=== PATIENT | female | born 1950 | race Caucasian/White ===

== ENCOUNTER → 2018-05-27 16:19 | Outpatient (CLI) | payer OTHER, SELFPAY ==
--- NOTE | 2018-05-27 | DI.MRI.S_ITS ---
PROCEDURE: MR THORACIC SPINE WO/W CON INDICATIONS: PARESTHESIAS TECHNIQUE: Noncontrast sagittal T1 spin echo and T2 fast spin echo, sagittal STIR, axial T1 and T2 fast spin echo through the thoracic spine. After the administration of contrast, axial and sagittal T1 spin echo with fat saturation through the thoracic spine. COMPARISON: [facility], MR, MR LUMBAR SPINE WO/W CON, 05/27/2018, 18:07. [facility], MR, MR CERVICAL SPINE WO/W CON, 05/27/2018, 17:12. [facility], MR, MR HEAD/BRAIN WO/W CON, 05/27/2018, 16:52. FINDINGS: Image quality: This examination is limited by involuntary motion artifact. Alignment and curvature: Accentuated thoracic kyphosis is seen. No focal AP alignment abnormality is seen. Marrow: Marrow is of normal overall signal. No acute vertebral body compression fractures. Incidental note is made of a remote appearing Schmorl's nodes at the superior endplates of T8 and T9. Spinal cord: Visualized spinal cord is of normal signal and size, without abnormal enhancement. Paraspinous soft tissues: No paravertebral masses or abnormal enhancement. A nonenhancing left renal cyst is seen posteriorly measuring 2 point it centimeters. The Miscellaneous: Central canal and foramina appear widely patent at all scanned levels. IMPRESSION: Limited study demonstrating no significant thoracic spine abnormality. No abnormal enhancement. Dictated by: Waldemar Rizvi M.D. on 05/28/2018 at 9:09 Approved by: Waldemar Rizvi M.D. on 05/28/2018 at 9:11
--- NOTE | 2018-05-27 | DI.MRI.S_ITS ---
PROCEDURE: MR LUMBAR SPINE WO/W CON INDICATIONS: PARESTHESIAS TECHNIQUE: Noncontrast sagittal T1 spin echo and T2 fast spin echo, sagittal STIR, axial T1 and T2 fast spin echo through the lumbar spine. In this patient, coronal T2-weighted images were also performed. After the administration of contrast, sagittal and axial T1 spin echo with fat saturation through the lumbar spine. COMPARISON: None. FINDINGS: Image quality: Excellent. Alignment and curvature: Minimal retrolisthesis is seen at the L2-L3 and L3-L4 levels. Marrow: Marrow is of normal overall signal. No acute vertebral body compression fractures. No suspicious marrow enhancement. Spinal cord: Conus medullaris terminates at the L1 level. Visualized spinal cord demonstrates normal signal, without suspicious enhancement. Paraspinous soft tissues: No paravertebral masses or abnormal enhancement. A nonenhancing 2.5 cm cyst is seen at the posterior aspect of the left kidney. T12-L1: Normal appearance. L1-L2: Normal appearance. L2-L3: Mild loss of disc height is seen. Loss of disc signal is seen. Moderate disc bulge is seen, which is eccentric to the left. There is moderate left-sided and mild right-sided neural foraminal narrowing seen. Minimal central canal narrowing is seen. L3-L4: The disc height is well-preserved. Loss of disc signal is seen at this level. Moderate disc bulge is seen, which is eccentric to the left side. Mild facet joint hypertrophy is seen. [id number] bilateral neural foraminal narrowing is seen. Minimal central canal narrowing is seen at the level. L4-L5: The disc height is well-preserved. Loss of disc signal is seen at this level. Moderate generalized disc bulge is seen. Moderate facet joint hypertrophy is seen. [id number] bilateral neural foraminal narrowing is seen. Mild central canal narrowing is seen. L5-S1: The disc height is well-preserved. Loss of disc signal is seen at this level. Mild generalized disc bulge is seen. Moderate facet joint hypertrophy is seen. There is mild right-sided and no left-sided neural foraminal narrowing. No central canal narrowing. IMPRESSION: Multiple levels of lumbar spine degenerative change are seen, which are most prominent at the L2-L3 level. No abnormal enhancement can be seen. Dictated by: Waldemar Rizvi M.D. on 05/28/2018 at 9:11 Approved by: Waldemar Rizvi M.D. on 05/28/2018 at 9:18
--- NOTE | 2018-05-27 | DI.MRI.S_ITS ---
PROCEDURE: MR CERVICAL SPINE WO/W CON INDICATIONS: PARESTHESIAS TECHNIQUE: Noncontrast sagittal T1 spin echo and T2 fast spin echo, sagittal STIR, foraminal oblique sagittal T2 fast spin echo, axial gradient echo or T2 fast spin echo through the cervical spine. After the administration of contrast, axial and sagittal T1 spin echo with fat saturation through the cervical spine. COMPARISON: [facility], MR, MR LUMBAR SPINE WO/W CON, 05/27/2018, 18:07. [facility], MR, MR THORACIC SPINE WO/W CON, 05/27/2018, 17:45. [facility], MR, MR HEAD/BRAIN WO/W CON, 05/27/2018, 16:52. FINDINGS: Image quality: This examination is limited by involuntary motion artifact. Furthermore, the standard cervical spine coil could not be used, secondary to patient discomfort. Alignment and curvature: There is normal bony alignment. Marrow: Marrow is normal in overall signal, without suspicious enhancement. Spinal cord: Visualized spinal cord has normal size and signal. No cerebellar tonsillar herniation. No abnormal intramedullary enhancement. Paraspinous soft tissues: No paravertebral masses or suspicious enhancement. C2-3: The disc height is well-preserved. Loss of disc signal is seen at this level. A mild degree of generalized disc osteophyte complex is seen. There is mild right-sided and no left-sided neural foraminal narrowing seen. The central canal is widely patent. C3-4: The disc height is well-preserved. Loss of disc signal is seen at this level. A mild degree of generalized disc osteophyte complex is seen. Mild facet joint hypertrophy is seen. Moderate bilateral neural foraminal narrowing is seen. Mild central canal narrowing is seen. C4-5: Mild loss of disc height is seen. Loss of disc signal is seen. Moderate disc osteophyte complex is seen, with a disc osteophyte protrusion involving the right lateral recess, as on series 4 image 15. There is moderate right-sided and mild left-sided facet hypertrophy seen. There is at least moderate bilateral neural foraminal narrowing seen. Mild to moderate central canal narrowing is seen. C5-6: Mild to moderate loss of disc height and disc signal are seen. Moderate generalized disc osteophyte complex is seen. Uncovertebral joint hypertrophy is seen at this level. Moderate to severe bilateral neural foraminal narrowing is seen at this level. Moderate central canal narrowing is seen. C6-7: Moderate loss of disc height is seen. Loss of disc signal is seen. Moderate generalized disc osteophyte complex is seen. Mild facet joint hypertrophy is seen. There is moderate to severe right-sided and moderate left-sided neural foraminal narrowing seen. Moderate central canal narrowing is seen. C7-T1: No significant abnormality is seen. IMPRESSION: Limited study demonstrate multiple levels of cervical spine degenerative change are seen, which are overall most prominent at the C5-C6 level. No abnormal enhancement can be seen. Dictated by: Waldemar Rizvi M.D. on 05/28/2018 at 8:59 Approved by: Waldemar Rizvi M.D. on 05/28/2018 at 9:08
--- NOTE | 2018-05-27 | DI.MRI.S_ITS ---
PROCEDURE: MR HEAD/BRAIN WO/W CON INDICATIONS: PARESTHESIAS TECHNIQUE: Noncontrast axial T1 spin echo, axial T2 fast spin echo, sagittal and axial FLAIR, coronal T2 fast spin echo, axial gradient echo, axial diffusion and ADC through the brain. After the administration of contrast, axial and coronal T1 spin echo with fat saturation through the brain. COMPARISON: None. FINDINGS: Image quality: Excellent. CSF spaces: Basal cisterns are patent. No extra-axial fluid collections. Ventricles are normal in size and shape. Brain: No midline shift. Scattered bilateral periventricular and subcortical white matter signal changes presumably chronic small vessel ischemic disease although technically nonspecific. No intracranial bleeds or masses. No abnormal intracranial enhancement. There is cerebral volume loss for age. There is periventricular white matter chronic small vessel ischemic change. The brainstem appears normal. Diffusion-weighted images demonstrate no acute ischemic insults. No chronic ischemic insults. Normal intravascular flow voids are present. Skull and face: Calvarial marrow is normal in signal. Orbits appear normal. Sinuses: Sinuses and mastoids appear clear. IMPRESSION: Scattered nonspecific white matter signal changes which could be chronic microvascular ischemic disease although cannot entirely exclude demyelination recommend clinical correlation.No associated or abnormal enhancement. Dictated by: Sherif Rebolledo M.D. on 05/28/2018 at 9:06 Approved by: Sherif Rebolledo M.D. on 05/28/2018 at 9:17
== END ==
PROVIDERS: PCP Family Medicine; Visit Provider Psychiatry & Neurology Neurology
DX: R20.2 Paresthesia of skin (principal); M50.30 Other cervical disc degeneration, unspecified cervical region; M51.36 Other intervertebral disc degeneration, lumbar region
CPT/HCPCS: 70553; 72156; 72157; 72158; A9579

== ENCOUNTER 2018-10-09 12:58 | Day surgery (SDC) | payer OTHER, SELFPAY ==
[2018-10-06 08:22] VITALS: BMI 35.9
[2018-10-09] VITALS (11 sets, daily range): BP systolic 136–177; BP diastolic 56–88; PULSE 66–81; RESP 11–16; TEMP 36.6–36.8; O2SAT 91–97; BMI 35.9
--- NOTE | 2018-10-09 | DI.RAD.S_ITS ---
PROCEDURE: XR KNEE LT 1TO2V INDICATIONS: RIGHT KNEE HARDWARE REMOVAL TECHNIQUE: 1 view(s) of the knee acquired. COMPARISON: [facility], CR, XR BONE LENGTH SCANOGRAM, 05/29/2018, 8:35. [facility], RG, KNEE 3VW (LT), 05/16/2017, 14:43. [facility], MR, MR KNEE LEFT WITHOUT CONTRAST, 05/06/2018, 16:40. FINDINGS: Surgical patent screws in the proximal tibia have been removed. IMPRESSION: Removal of surgical hardware. Dictated by: Todd Moreno M.D. on 10/09/2018 at 17:55 Approved by: Todd Moreno M.D. on 10/09/2018 at 17:56
[2018-10-09] MEDS: CEFAZOLIN 2 GM/100 ML FROZ.PIGGY IV (15:08)
--- NOTE | 2018-10-09 15:54 | SUR.OPER ---
Supine on padded OR bed, head on pillow, arms secured on padded arm boards at <90 degrees abduction, legs uncrossed, safety belt at thigh, tape over blanket over lower legs.
[2018-10-09] MEDS: BUPIVACAINE 0.25% W/ EPI VIAL 50 ML INJ (16:12)
[2018-10-09] MEDS: BUPIVACAINE LIPOSOME 266 MG/20 ML VIAL INJ (16:13)
[2018-10-09] MEDS: ACETAMINOPHEN IV 1,000 MG/100 ML VIAL 400 MG IV (16:21)
--- NOTE | 2018-10-09 16:46 | SUR.OPER ---
UNABLE TO DOCUMENT EXACT ITEMS EXPLANTED THEY ARE FROM A SPECIFIC IMPLANT TRAY FROM ANOTHER FACILITY AND NO ACCESS TO NUMBERS WAS AVAILABLE.
[2018-10-09] MEDS: LACTATED RINGERS 1,000 ML 42 ML IV (16:58)
--- NOTE | 2018-10-09 17:16 | P.OP_ITS ---
Operative Date/Time/Diagnoses Date of procedure: 10/09/18 Time of procedure: 17:12 Pre-op diagnosis: left tibia malunion, nonunion Post-op diagnosis: same Procedure & Clinicians Procedure: removal deep internal fixation tibia Same procedure as scheduled: Yes Indications: 67 year old with history of a tibial plateau fracture with substantial valgus deformity and a tibial plateau malunion after open reduction internal fixation which was done [place]. She has fairly severe left knee pain and is unable to fully weightbear. Her x-rays showed significant collapse of the lateral compartment she is brought the operating room for removal of internal fixation with the anticipation that ultimately she will likely require a complex primary total knee arthroplasty. Surgeon: Melva Nieves Hydraulic Blocker: Ana Maria Rosenberg Anesthesia Type: General and Spinal Operative Notes Findings: Hardware removed without difficulty. Proximal tibial plateau markedly softened with some of the screws in an intra-articular location with loss of bone and articular cartilage covering the screws. Softening of the lateral tibial plateau. All hardware removed without significant difficulty. Closure Type: primary Specimen(s): none sent Estimated Blood Loss (mL): 100 Blood products transfused: none Tourniquet time (min): 75 Procedure in detail: Patient was brought to the operating room. She underwent the induction of a spinal and general anesthesia. Her left lower extremities prepped draped standard sterile fashion. Antibiotics were given and time-out was performed. Patient's previous surgical incision laterally was used portion of it. Dissection was carried out through skin and subcutaneous tissues. Tourniquet was inflated to 250 mm of mercury. Gelpi retractors were placed. Patient's lateral fascia and anterior compartment incision was made just off of the lateral aspect of the tibial tubercle. The muscles of the tibialis anterior were carefully stripped from the tibia down to the plate. Plate and screws were removed without difficulty. The iliotibial band was retracted laterally. The C- arm was brought in and the K-wires were removed using C-arm guidance. Several of the K-wires were in the subchondral bone to intra-articular. The 2 screws that were placed outside of the plate were carefully removed. There was marked softening of the proximal tibia. A view of the intra-articular surface and tibial plateau showed that 1 of the screws had eroded through the subchondral bone articular cartilage and was impinging upon the femoral condyle. There was moderate arthritic change in the lateral femoral condyle and severe destruction of the articular cartilage surface of the tibial plateau laterally as well as the subchondral bone. All hardware was removed and the x-ray was used to confirmed this fluoroscopically. The knee was meticulously irrigated with normal saline. Marcaine and Exparel were injected into the anterior compartment as well as intra-articularly and along the skin incision. The wound was closed with interrupted Vicryl. Subcutaneous tissues was closed with barbed stitches as was the skin. [place] were placed. An Aquacel dressing was placed. Patient tolerated the procedure well transferred recovery room in satisfactory condition. Complications: none Condition: stable Disposition: same day surgery Plan for aftercare: Weightbearing as tolerated left lower extremity. Suture removal and wound check in about 2 weeks postoperatively. Get check x-rays. Return to see me at 3-4 weeks postoperatively for a wound check and additional surgical planning.
[2018-10-09] MEDS: fentaNYL 100 MCG/2 ML INJ 25 MCG IV ×2 (17:33→17:38)
[2018-10-09] MEDS: OXYCODONE IR 5 MG TABLET PO (17:47)
== END 2018-10-09 18:27 | disposition home or self-care (01) ==
PROVIDERS: PCP Family Medicine; Visit Provider Orthopaedic Surgery
PROC: (CPT 20680; principal; 2018-10-09 15:00)
DX: S82.142A Displaced bicondylar fracture of left tibia, initial encounter for closed fracture (principal); M19.172 Post-traumatic osteoarthritis, left ankle and foot; V29.9XXS Motorcycle rider (driver) (passenger) injured in unspecified traffic accident, sequela; I10 Essential (primary) hypertension; F33.41 Major depressive disorder, recurrent, in partial remission; J45.909 Unspecified asthma, uncomplicated; Z87.891 Personal history of nicotine dependence; G43.909 Migraine, unspecified, not intractable, without status migrainosus; Z68.35 Body mass index [BMI] 35.0-35.9, adult; E66.9 Obesity, unspecified
CPT/HCPCS: 20680; 73560; 76000; C9290; J0131; J0690; J2250; J2405; J2704; J3010

== ENCOUNTER → 2018-12-07 12:26 | Outpatient (CLI) | payer OTHER, SELFPAY ==
--- NOTE | 2018-12-07 | DI.MRI.S_ITS ---
PROCEDURE: MR KNEE LT WO CON INDICATIONS: Torus fracture of upper end of left fibula TECHNIQUE: Noncontrast sagittal PD fast spin echo and T2 fast spin echo with fat saturation, sagittal 3-D FLASH with fat saturation; coronal T1 spin echo and PD fast spin echo with fat saturation, and axial PD fast spin echo with fat saturation through the knee. COMPARISON: [facility], CR, XR KNEE ARTHRITIC SERIES LT, 06/03/2018, 16:06. [facility], CR, XR KNEE 1 OR 2 VIEWS LEFT, 10/22/2018, 16:31. FINDINGS: Image quality: Susceptibility artifacts are noted over lateral aspect of left knee from previous surgical fixation. Study is also suboptimal secondary to patient's body habitus. Menisci: The there is suggestion of complex tear involving posterior horn medial meniscus extending to both superior and inferior articulating surfaces. There is nonvisualization of normal lateral meniscus, which may represent prior lateral meniscectomy, suggest clinical correlation. Cruciate ligaments: Anterior cruciate ligament appears thickened with heterogeneous internal T2 signal suggestive of sprain and intrasubstance partial-thickness tear involving anterior cruciate ligament. PCL is intact. Medial structures: The medial collateral ligament appears intact. The posterior oblique ligament, semimembranosus tendon insertions, oblique popliteal ligament, and meniscocapsular junction appear intact. Visualized portions of the pes anserinus tendons appear normal. No abnormal bursal fluid. Lateral structures: The lateral collateral ligament is not well seen suggestive of a torn lateral collateral ligament. Soft tissue swelling and edema superficial and deep to the region of lateral collateral ligament is noted. The long and short heads of the biceps femoris tendon appear intact. The popliteus tendon appears normal; the popliteofibular ligament appears intact. The posterosuperior and anteroinferior popliteomeniscal fascicles appear intact. The arcuate and fabellofibular ligaments appear intact, on either side of the lateral inferior geniculate artery. Iliotibial band appears normal. Anterior structures: The quadriceps and patellar tendons appear intact. Patellar alignment is normal. No femoral trochlear dysplasia or ventral trochlear prominence. No edema in the infrapatellar fat pad. Bones and cartilage: Prior fixation of lateral tibial plateau and proximal tibia shaft is seen with post surgical changes and blooming susceptibility artifacts. No gross acute fracture or dislocation is seen. Moderate tricompartmental osteoarthritis is noted more prominent in lateral femoral tibial compartment. Joint space: There is moderate amount of joint fluid, no gross loose body. No Redman's cyst. Normal appearing synovial plicae are incidentally noted. IMPRESSION: #1. Prior ORIF of proximal tibia with postsurgical changes and susceptibility artifact slightly degrades the study. No gross acute fracture or dislocation. No significant marrow signal abnormality. 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 #2. Nonvisualization of normal lateral meniscus suggestive of partial meniscectomy versus chronic complex tear. Complex tear involving posterior horn of medial meniscus extending to superior and inferior articulating surfaces. #3. Sprain/moderately intrasubstance partial-thickness tear involving anterior cruciate ligament. No full-thickness ACL rupture. PCL is intact. #4. Nonvisualization of normal lateral collateral ligament, suggestive of LCL rupture. Dictated by: Guillermo Rodgers M.D. on 12/07/2018 at 14:05 Approved by: Guillermo Rodgers M.D. on 12/07/2018 at 14:14
== END ==
PROVIDERS: PCP Family Medicine; Visit Provider Orthopaedic Surgery
DX: S82.81 Torus fracture of upper end of fibula (principal); S83.512A Sprain of anterior cruciate ligament of left knee, initial encounter; S83.232A Complex tear of medial meniscus, current injury, left knee, initial encounter; M17.12 Unilateral primary osteoarthritis, left knee
CPT/HCPCS: 73721

== ENCOUNTER 2018-12-18 13:00 | Emergency (ER) | payer OTHER, SELFPAY ==
[2018-12-18 13:10] VITALS: BP 125/80; PULSE 67; RESP 18; O2SAT 96
[2018-12-18 15:45] VITALS: BP 143/78; PULSE 81; RESP 15; TEMP 36.4; O2SAT 100
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
[2018-12-18] MEDS: ONDANSETRON 4 MG/2 ML INJ IV (18:59)
[2018-12-18] MEDS: PANTOPRAZOLE 40 MG VIAL IV (18:59)
[2018-12-18] MEDS: SODIUM CHLORIDE 0.9% 1,000 ML 1000 ML IV (18:59)
[2018-12-18 19:00] LABS: Add Manual Diff / Slide Review NO; Basophils Absolute Auto 0 /uL (0-100); Basophils Percent Auto 0.7 % (0-2); Eosinophils Absolute Auto 400 /uL (0-450); Eosinophils Percent Auto 5.4 % (2-4); Hematocrit 42.3 % (36-46); Hemoglobin 13.7 g/dL (12.0-16.0); Lymphocytes Absolute Auto 2200 /uL (1100-4500); Lymphocytes Percent Auto 30.5 % (25-40); Mean Corpuscular HGB Conc 32.5 % (30-36); Mean Corpuscular Hemoglobin 29.4 PG (26-34); Mean Corpuscular Volume 90.5 fL (80-100); Monocytes Absolute Auto 700 /uL (0-900); Monocytes Percent Auto 9.9 % (3-14); Neutrophils Absolute Auto 3800 /uL (1500-7000); Neutrophils Percent Auto 53.5 % (50-75); Platelet Count 178 X10^3/uL (150-400); Red Blood Cell Count 4.68 X10^6/uL (4.0-5.2); Red Cell Distribution Width 13.9 % (11.6-14.8); White Blood Cell Count 7.1 X10^3/uL (4.5-11.0)
[2018-12-18 19:12] LABS: Alanine Aminotransferase 20 IU/L (9-52); Albumin 4.3 g/dL (3.5-5.0); Albumin Globulin Ratio 1.3 (1.0-2.8); Alkaline Phosphatase 75 U/L (38-126); Aspartate Aminotransferase 22 IU/L (14-36); BUN Creatinine Ratio 12.2 (6-22); Bilirubin Total 0.3 mg/dL (0.2-1.3); Blood Urea Nitrogen 11 mg/dL (7-17); Calcium 9.5 mg/dL (8.4-10.2); Carbon Dioxide 30 mmol/L (22-32); Chloride 98 mmol/L (98-107); Estimated Glomerular Filt Rate > 60.0 mL/min (>60); Globulin 3.3 g/dL (1.7-4.1); Glucose 90 mg/dL (80-110); HEMOLYSIS < 15 (0-50); Lipase 75 U/L (23-300); Potassium 4.4 mmol/L (3.4-5.1); Sodium 136 mmol/L (137-145); Total Protein 7.6 g/dL (6.3-8.2)
[2018-12-18 19:30] VITALS: BP 125/49; PULSE 68; RESP 24; O2SAT 94
[2018-12-18 20:30] VITALS: BP 124/65; PULSE 61; RESP 15; O2SAT 98
[2018-12-18 21:14] LABS: Bacteria Urine None Seen; RBC Urine None Seen (0-5/HPF)
[2018-12-18 21:41] LABS: Culture Indicated Urine Specimen Cultured; Squamous Epithelial Cell Urine 0-1 /HPF; WBC Urine 1-5/HPF (0-5/HPF)
== END 2018-12-18 22:45 | disposition home or self-care (01) ==
PROVIDERS: Emergency Medicine; Emergency Provider Nurse Practitioner Family; PCP Family Medicine
DX: R19.7 Diarrhea, unspecified (principal)
CPT/HCPCS: 36591; 80053; 81003; 81015; 83690; 85025; 87086; 96361; 96374; 96375; 99283; 99284; C9113; J2405

== ENCOUNTER → 2019-06-23 15:41 | Outpatient (CLI) | payer OTHER, SELFPAY ==
--- NOTE | 2019-06-23 | DI.MRI.S_ITS ---
PROCEDURE: MR KNEE LT WO CON INDICATIONS: Unilateral post-traumatic osteoarthritis. Left knee pain TECHNIQUE: Noncontrast sagittal PD fast spin echo and T2 fast spin echo with fat saturation, sagittal 3-D FLASH with fat saturation; coronal T1 spin echo and PD fast spin echo with fat saturation, and axial PD fast spin echo with fat saturation through the knee. COMPARISON: [facility], CR, XR KNEE 1 OR 2 VIEWS LEFT, 10/22/2018, 16:31. [facility], CR, XR KNEE ARTHRITIC SERIES LT, 06/09/2019, 9:09. [facility], MR, MR KNEE LT WO CON, 12/07/2018, 12:58. FINDINGS: Image quality: Diagnostic. Susceptibility artifacts are noted in lateral portion of proximal tibial shaft from prior surgery. Menisci: Truncated appearance of the medial meniscus is seen on the current study suggestive of partial meniscectomy. Signal abnormality involving posterior horn of medial meniscal remnant, which may represent postsurgical changes. Local recurrent tear cannot be entirely excluded. Nonvisualization of lateral meniscus, unchanged from prior study and may represent prior lateral meniscectomy. Cruciate ligaments: Heterogeneous signal within thickened anterior cruciate ligament is again seen suggestive of sprain/intrasubstance partial thickness tear. No full-thickness ACL rupture. PCL is intact. Medial structures: The medial collateral ligament appears intact. The posterior oblique ligament, semimembranosus tendon insertions, oblique popliteal ligament, and meniscocapsular junction appear intact. Visualized portions of the pes anserinus tendons appear normal. No abnormal bursal fluid. Lateral structures: The lateral collateral ligament is not visualized, suggestive of torn lateral collateral ligament. Soft tissue swelling and edema superficial and deep to region of lateral collateral ligament is again seen and unchanged. The long and short heads of the biceps femoris tendon appear intact. The popliteus tendon appears normal; the popliteofibular ligament appears intact. The posterosuperior and anteroinferior popliteomeniscal fascicles appear intact. The arcuate and fabellofibular ligaments appear intact, on either side of the lateral inferior geniculate artery. Iliotibial band appears normal. Anterior structures: The quadriceps and patellar tendons appear intact. Patellar alignment is normal. No femoral trochlear dysplasia or ventral trochlear prominence. No edema in the infrapatellar fat pad. Bones and cartilage: Again noted are postsurgical changes involving medial aspect of proximal tibia consistent with healing proximal tibial fracture. No gross acute fracture or dislocation. Moderate tricompartmental osteoarthritis is again seen more prominent in lateral femoral tibial compartment. Joint space: There is physiologic knee joint fluid. No Redman's cyst. Normal appearing synovial plicae are incidentally noted. IMPRESSION: 1. Suggestion of interval partial meniscectomy and medial meniscus as above. Signal abnormality involving posterior horn medial meniscal remanent, which may represent postsurgical changes. Recurrent tear cannot be entirely excluded. Suggestion of prior lateral meniscectomy. 2. Sprain/intrasubstance partial-thickness tear involving anterior cruciate ligament changed from prior study. 3. Absence of normal lateral collateral ligament unchanged from prior study. MCL is intact. 4. Moderate tricompartmental osteoarthritis more prominent in medial femoral tibial compartment. Prior ORIF of medial aspect of proximal tibia with stable postsurgical changes. No acute fracture or dislocation. Dictated by: Guillermo Rodgers M.D. on 06/23/2019 at 17:05 Approved by: Guillermo Rodgers M.D. on 06/23/2019 at 17:13
== END ==
PROVIDERS: PCP Family Medicine; Visit Provider Orthopaedic Surgery
DX: M17.32 Unilateral post-traumatic osteoarthritis, left knee (principal); M25.562 Pain in left knee; S83.512A Sprain of anterior cruciate ligament of left knee, initial encounter
CPT/HCPCS: 73721

== ENCOUNTER 2019-08-10 11:11 | Day surgery (SDC) | payer OTHER, SELFPAY ==
[2019-08-03 12:35] VITALS: BMI 38.4
[2019-08-10] VITALS (11 sets, daily range): BP systolic 107–146; BP diastolic 49–84; PULSE 53–94; RESP 12–18; TEMP 35.8–36.7; O2SAT 94–99; BMI 37.5
--- NOTE | 2019-08-10 06:00 | DI.RAD.S_ITS ---
PROCEDURE: XR KNEE LT 1TO2V INDICATIONS: total left knee TECHNIQUE: 2 view(s) of the knee acquired. COMPARISON: [facility], CR, XR KNEE LT 1TO2V, 10/09/2018, 16:06. [facility], MR, MR KNEE LT WO CON, 06/23/2019, 16:01. FINDINGS: Bones: Patient is status post knee joint arthroplasty. Hardware components are in expected positions. Visualized bony structures are intact. Soft tissues: Overlying postoperative changes are noted. IMPRESSION: Expected postsurgical changes as above. Dictated by: Myla Valero M.D. on 08/11/2019 at 12:45 Approved by: Myla Valero M.D. on 08/11/2019 at 12:46
[2019-08-10] MEDS: VANCOMYCIN 1,000 MG/200 ML PIGGYBACK 200 MG IV (12:40)
[2019-08-10] MEDS: LACTATED RINGERS 1,000 ML 42 ML IV ×2 (12:40→14:52)
--- NOTE | 2019-08-10 13:52 | SUR.PREOP ---
Verified pt has tolerated Ancef at previous visit and is ok to give per Dr. Nieves.
[2019-08-10] MEDS: CEFAZOLIN 2 GM/100 ML FROZ.PIGGY IV (13:54)
[2019-08-10] MEDS: TRANEXAMIC ACID 1,000 MG VIAL 1000 MG INJ (14:32)
[2019-08-10] MEDS: BUPIVACAINE 0.25% W/ EPI 30 ML VIAL 60 ML INJ (14:54)
[2019-08-10] MEDS: BUPIVACAINE LIPOSOME 266 MG/20 ML VIAL INJ (14:55)
[2019-08-10] MEDS: SODIUM CHLORIDE IRRIG SOLUTION 250 ML, POVIDONE-IODINE SPONGE STICKS 1 APPLIC IRR (14:57)
--- NOTE | 2019-08-10 15:01 | SUR.OPER ---
Supine on padded OR bed. Gel donut under head, arms secured on padded armboards <90 degree abduction. Safety belt across torso. Non-operative leg secured with tape over blanket over lower leg. Operative leg secured in DeMayo positioner. Foam padded brace at thigh of operative leg.
--- NOTE | 2019-08-10 17:37 | PM.OP.1 ---
Operative Date/Time/Diagnoses Date of procedure: 08/10/19 Time of procedure: 13:55 Pre-op diagnosis: post traumatic OA severe left tibia Post-op diagnosis: same Operative Notes Findings: Severe lateral tibial arthritic wear and scar with marked valgus deformity, no infectious appearing material Closure Type: primary Specimen(s): other (cultures from tibia) Prosthetic devices, grafts, tissues, transplants, or devices: Nieves and Nephew legion size 4 femur, cruciate sacrificing, size 2 tibia, 12 x 100 mm tibial stem, +10 poly, 35 by 7-1/2 mm patella Applied: drain(s) Estimated Blood Loss (mL): 250 Blood products transfused: none Tourniquet time (min): 123 Procedure in detail: The patient was seen in the pre-operative area, where the patient identified the left knee as the operative site and this was marked with my initials. The patient received pre-operative antibiotics, and was taken to the operating room and placed on the operative table in the supine position. After satisfactory anesthesia, a fuller brush man out was performed. The left leg was encircled with a tourniquet about the proximal thigh, and the leg was prepared from the toes to the tourniquet with ChloroPrep in the usual fashion and draped through sterile drapes. The leg was elevated and exsanguinated with Eschmark bandage and the tourniquet inflated to [250] mmHg pressure. The knee was approached through an approximately 18 cm incision centered over the patella and carried into the knee through a medial parapatellar arthrotomy. A portion of the medial and lateral meniscus was resected. Soft tissue was carefully mobilized around the patella the patella was measured with a caliper. Bone was resected from the patella and the patellar height was reconstituted with an appropriate sized patellar component. A cover was then placed on the patella. A small amount of additional medial meniscus and severe lateral scar was resected. The visionare guide fit well to the distal femur. It looked like an appropriate distal femoral cut and the cut was made without difficulty. The rotation was assessed and the appropriate size femoral guide was placed on the distal femur and finishing cuts were made. There was no evidence of notching. The anterior, posterior and chamfer cuts were then made. The posterior osteophytes and soft tissues were then removed. The posterior capsule was injected with part of a mixture of 60 ml 0.25% Marcaine mixed with 20 ml Exparel for post operative pain control. The remainder of this mixture was injected into the capsule and subcutaneous tissues during cement curing. The tibia was prepared and the visionaire guide fit to the distal tibia. It was meticulously checked due to the defect in the tibia. The rotation was assessed. The patient was placed in extension residual medial and lateral meniscus and scar as well as any residual bone was carefully resected. [No] additional tibia was resected. Hemostasis was achieved especially posteriorly. Additional local was injected into the posterior capsule. The extension gap was assessed and additional releases for gap balancing were performed as necessary. It was checked with the gap finishing machine operator automatic. The femoral component was trial was placed and the notch was finished. Trial tibial and femoral components were then placed and the knee placed through a range of motion. Range of motion was [0-130], with good stability throughout the range. The trials were then removed, and the tibia was finished. The tibia was sized at a size 2. There was some defect in the lateral cortex. Scar and soft tissue was meticulously removed from the residual lateral tibial plateau. There was some bony defect. This was carefully bone grafted with autologous bone. A 12 mm stem by 100 mm was selected to out on to the size 2 tibial component and it was reamed through the size 2 guide as well as after the base plate had been removed. The bone was prepared with pulsatile lavage, and dried with a sponge. Bone grafts carefully placed on the tibia and impacted with a tamp into the defect on the lateral side. Cement was applied and the final prosthetics placed. Excess cement was removed during and after cement curing. A brief Betadine soak was performed. After confirming there was no extruded cement posteriorly, the final tibial insert was placed. The knee was copiously irrigated and the tourniquet deflated. Hemostasis was obtained with the Bovie cautery. A drain was placed and brought out superolaterally. The capsule was closed with interrupted Vicryl suture. The subcutaneous layer was closed with barbed sutures, and the skin with a running 3-0 V-Lock suture and Surgical glue. An Aquacel Ag dressing was applied and the patient was taken to recovery having tolerated the procedure well. Complications: none Post-operative Condition: stable Disposition: Acute Care Plan for aftercare: The patient will be maintained on a standard total knee replacement protocol with weight bearing as tolerated. The patient will receive aspirin and sequential compression devices for DVT prophylaxis. The patient will be discharged home when safe for the home environment.
--- NOTE | 2019-08-10 17:49 | SUR.PHASEI ---
Tolerating po. Denies pain/nausea. Jd BRAXTON.
[2019-08-10] MEDS: OXYCODONE IR 5 MG TABLET PO (18:30)
[2019-08-10] MEDS: LACTATED RINGERS 1,000 ML 125 ML IV (18:31)
--- NOTE | 2019-08-10 18:56 | PC.NURSE ---
Addendum entered by Salma Avina R.N. 08/10/19 22:39: 2230: Pt med @ 2110 w/oxycodone 10mg as per new order. Pt resting quietly at this time. IVF continue as per orders. Dsg CDI. Satisfactory post op course Call light w/in reach, bed alarm on for pt safety. Continue w/plan of care. Original Note: [id number] Shift Note Pt arrived to RM 228 from PACU @ 1800 Awake, oriented. Denies discomfort at this time. KIMMIE Dsg to left surgical knee CDI Hemovac clamped at this time. Oriented to room and call system. Call light w/in reach, bed alrm on for pt safety.
[2019-08-10] MEDS: ASPIRIN EC 81 MG TABLET PO (20:33)
[2019-08-10] MEDS: IBUPROFEN 400 MG TABLET PO (20:33)
[2019-08-10] MEDS: OXYCODONE IR 10 MG TABLET PO (21:12)
[2019-08-10] MEDS: CARBIDOPA-LEVODOPA ER 50/200 TABLET 2 EACH PO (21:13)
[2019-08-11] VITALS: BP 110/54; PULSE 63; RESP 16; TEMP 36.4; O2SAT 96
[2019-08-11] MEDS: ACETAMINOPHEN 325 MG TABLET 975 MG PO ×2 (00:33→09:10)
[2019-08-11] MEDS: IBUPROFEN 400 MG TABLET PO ×4 (00:34→14:13)
[2019-08-11] MEDS: PREGABALIN 50 MG CAPSULE PO ×2 (00:34→09:09)
[2019-08-11] MEDS: VANCOMYCIN 1,000 MG/200 ML PIGGYBACK 200 MG IV (00:34)
[2019-08-11] MEDS: OXYBUTYNIN 5 MG TABLET PO ×2 (00:34→09:03)
[2019-08-11] MEDS: OXYCODONE IR 10 MG TABLET PO ×2 (02:47→14:18)
[2019-08-11] MEDS: LACTATED RINGERS 1,000 ML 125 ML IV (04:12)
[2019-08-11 05:47] LABS: Hematocrit 36.5 % (36-46); Hemoglobin 11.8 g/dL (12.0-16.0)
[2019-08-11] MEDS: PANTOPRAZOLE 20 MG TABLET PO (06:15)
[2019-08-11] MEDS: OXYCODONE IR 5 MG TABLET PO (06:21)
[2019-08-11 07:15] VITALS: BP 90/57; PULSE 56; RESP 16; TEMP 36.4; O2SAT 97
[2019-08-11 08:11] VITALS: PULSE 53; O2SAT 94
[2019-08-11] MEDS: DOCUSATE 100 MG CAPSULE PO (09:03)
[2019-08-11] MEDS: ASPIRIN EC 81 MG TABLET PO (09:03)
--- NOTE | 2019-08-11 10:18 | PC.NURSE ---
Hemovac drain removed at 0930, intact with 15mL drainage. Dressed with 2x2 and Tegaderm. Patient tolerated well.
[2019-08-11 12:00] VITALS: BP 119/70; PULSE 68; RESP 16; TEMP 36.4; O2SAT 97
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
--- NOTE | 2019-08-11 14:15 | PT.IPTN ---
This is to certify that I have reviewed this documentation and is involved with this pt's care. Current Diagnoses Unilateral post-traumatic osteoarthritis, left knee (08/10/19) Displaced bicondylar fracture of left tibia, subsequent encounter for closed fracture with malunion (08/10/19) Surgery Performed Operation Date: 08/10/19 13:45 Actual Procedures p Total Knee Arthroplasty(Left) - Melva Nieves MD Physical Therapy Treatment Note M2 PT-IP Current Condition Start: 08/11/19 08:22 Freq: NEEDED Status: Active Protocol: Document 08/11/19 08:38 JG (Rec: 08/11/19 11:20 JG [email or web address]) Physical Therapy Current Condition Current Condition Evaluation Date 08/11/19 Treatment Diagnosis L TKA, difficulty walking, impaired balance, limited activity tolerance Onset Date 08/10/19 Weight Bearing Status Weight Bearing Status Weight Bear as Tolerated M3 PT-IP Subjective Start: 08/11/19 08:22 Freq: NEEDED Status: Active Protocol: Document 08/11/19 14:15 AMY (Rec: 08/11/19 15:55 AMY [id number]) Subjective Physical Therapy Visit Type Type Treatment Note Visit Start Time 14:15 Visit Stop Time 14:40 Notes Treatment supervised by PT Sis . Number of CHIEF OF FIELD OPERATIONS Visits 1 Physical Therapy Visit Comments Patient Comments Pt reports she is waiting to go home today and that her can help her. Patient Goals Return home Therapy Pain Assessment Pain When Pain Assessed During Mobility Pain Present Pain Present Pain Reported Location Left Knee Description Acute,Sharp,With Movement Pain Behaviors Facial Grimacing,Wincing Pain Management Techniques Modification of Treatment, Timing of Activity with Medications M4 PT-IP Mobility and Gait Start: 08/11/19 08:22 Freq: NEEDED Status: Active Protocol: Document 08/11/19 14:15 AMY (Rec: 08/11/19 15:55 AMY [id number]) PT-Bed Mobility Assessment Supine to Sit Supine to Sit Minimal Assistance,1 Person Assistance Sit to Supine Sit to Supine Moderate Assistance,1 Person Assistance Scooting Scooting to Edge of Bed Contact Guard Assistance PT-Transfer Assessment Sit to and From Stand Sit to and from Stand Minimal Assistance,1 Person Assistance,Use of Upper Extremities Equipment Transfer Assistive Device Gait Belt,Front Wheeled Walker Orthotic/Prosthetic Devices or Brace: No Transfers Transfer Destination Bed Transfer Technique Pt ambulated with FWW. Transfer Ability Level of Assist Standby Assistance Comments Mobility Comments Pt in bed upon arrival with in room. Offered caregiver training, but pt and reported that they feel comfortable and has been providing assistance for 2 years. Pt remains impulsive with sit<>stand. Pt and able to complete bed mobility and transfer in and out of bed safely without cues. Gait Assessment Gait Gait Assistance Required: Contact Guard Assist,1 Person Assist Distance (Feet) 30 Able to Maintain Weight Bearing Status Yes During Gait Assistive Devices Assistive Device Gait Belt,Front Wheeled Walker Orthotic/Prosthetic Devices or Brace: No Gait Deviations General Gait Pattern Antalgic,Decreased Stride Length,Decreased Feet Clearance,Flexed Trunk,Lateral Trunk Lean,Step-to Gait Factors Limiting Gait Function Factors Limiting Gait Function Decreased Activity Tolerance, Decreased Strength,Difficulty Following Directions,Limited Range of Motion,Pain,Poor Balance,Poor Safety Awareness Comments Gait Comments Pt is able to ambulate 30 ft, but has increased weakness in LE. Pt stated that she will only need to walk from bed to bathroom at home, and is safe to complete at home with FWW. Pt has w/c at home for long distances. Stair Climbing Assessment Comments Stair Climbing Comments not assessed, pts helps pt cross over threshold into home using w/c. M5 PT-IP Objective Assessments Start: 08/11/19 08:22 Freq: NEEDED Status: Active Protocol: Document 08/11/19 08:38 JG (Rec: 08/11/19 11:20 J [email or web address]) Orientation Orientation/Cognition Level of Alertness Alert Orientation Name,Age,Birthday,Month,Date, Year,Day of Week,Place, Situation Language Function Ability No Deficits Noted Safety Awareness Understands Safety Issues Memory Description No Deficits Noted Comments No noted cognitive or communication deficits. Pt understands safety issues but was impulsive throughout session and required cuing for safety. Gross Range of Motion Upper Extremity ROM Assessment Within Functional Limits Lower Extremity ROM Assessment Left Impaired Strength Upper Extremity Strength Assessment Left Impaired Lower Extremity Strength Assessment Left Impaired Muscle Tone Muscle Tone WNL Yes M6 PT-IP Treatment Start: 08/11/19 08:22 Freq: NEEDED Status: Active Protocol: Document 08/11/19 08:38 JG (Rec: 08/11/19 11:20 J [email or web address]) Physical Therapy Treatment Education Education Provided Weight Bearing Status,Post-Op Packet,Safety M7 PT-IP Assessment and Plan Start: 08/11/19 08:22 Freq: NEEDED Status: Active Protocol: Document 08/11/19 14:15 AMY (Rec: 08/11/19 15:55 AMY [id number]) PT Summary Assessment and Plan Summary Impairments Pain,ROM,Strength,Balance, Sensation,Bed Mobility, Transfers,Gait,Activity Tolerance Progress Towards Goals Slow Progress due to Activity Tolerance Assessment Summary Pt requires CGA with bed mobility and transfers. is able to provide adequate assistance to meet pts need. Safe to d/c home when medically stable. Goals Bed Mobility Goal Independent Transfer Goal Standby Assistance,Front Wheeled Walker Gait Goal Standby Assistance,Front Wheel Walker Gait Distance 250 Other Goals Ascend/descend 6 platform step either CGA with FWW or caregiver assist with w/c Days to Meet Goals 5 Frequency of Treatment Frequency Of Treatment Twice a Day Treatment Plan Physical Therapy Treatment Plan Bed Mobility Training,Transfer Training,Gait Training, Therapeutic Exercise,Balance Retraining,Post Op Education, Discharge Planning,Hot or Cold Pack,Neuromuscular Re-ed Other Recommendations and Next Treatment Caregiver training Focus Platform stair with FWW and w/ c and caregiver assist Recommendations To Nursing Amount of Assist Needed 1 Person Assist Discharge Recommendations PT Discharge Recommendations Home with Assistance,Home Health,Outpatient PT
--- NOTE | 2019-08-11 14:42 | CM.IDA ---
Initial DCP Assessment Note: Pt is a 68 yo female, resident of [place], now POD#1 from t knee surgery w/ Dr Nieves PCP: Dr Madera Payer: Cristóbal TOTH Reviewed chart, pt discussed in multidisciplinary rounds this morning. Therapy has cleared pt for return home w/family to assist and pt has planned for home, DC order from [facility] has already been initiated this morning. No needs expected from DC planning team although will remain available in case this changes today. SHERWIN Knutson
--- NOTE | 2019-08-11 15:45 | PC.NURSE ---
Addendum entered by Fifi Bergman R.N. 08/11/19 16:32: 1530 - Patient taken out of building in wheelchair with all belongings and paperwork. States she understands all instructions and medications. Original Note: Discharge: Pt feels ready to d/c home. D/c instructions reviewed by PT/OT w/pt. PA saw pt and answered her questions. Reviewed d/c instructions w/pt and spouse. RX given. Questions answered. Pt is voiding w/out diff and tolerates diet w/out problems. Pt d/c home via auto w/spouse. Pt had no concerns prior to leaving.
== END 2019-08-11 15:30 | disposition home or self-care (01) ==
LOC: OR 11:15 → AC 11:15
PROVIDERS: PCP Family Medicine; Visit Provider Orthopaedic Surgery
PROC: 0SRD0JZ Replacement of Left Knee Joint with Synthetic Substitute, Open Approach (ICD-10-PCS; CPT 27447; principal; 2019-08-10 13:45)
DX: M17.32 Unilateral post-traumatic osteoarthritis, left knee (principal); S82.142P Displaced bicondylar fracture of left tibia, subsequent encounter for closed fracture with malunion
CPT/HCPCS: 27447; 36415; 73560; 85014; 85018; 87070; 87075; 87176; 87205; 94760; 97116; 97162; 97530; C1776; C9290; J0690; J2250; J2704; J3010

== ENCOUNTER → 2020-10-09 12:38 | Outpatient (CLI) | payer OTHER, SELFPAY ==
[2019-08-10 18:47] VITALS: BMI 37.5
[2020-10-09 13:15] LABS: Add Manual Diff / Slide Review NO; Basophils Absolute Auto 100 /uL (0-100); Basophils Percent Auto 1.3 % (0-2); Eosinophils Absolute Auto 200 /uL (0-450); Eosinophils Percent Auto 3.1 % (2-4); Hematocrit 40.4 % (36-46); Hemoglobin 13.6 g/dL (12.0-16.0); Lymphocytes Absolute Auto 1500 /uL (1100-4500); Lymphocytes Percent Auto 24.8 % (25-40); Mean Corpuscular HGB Conc 33.6 % (30-36); Mean Corpuscular Hemoglobin 29.5 PG (26-34); Mean Corpuscular Volume 87.9 fL (80-100); Monocytes Absolute Auto 600 /uL (0-900); Monocytes Percent Auto 10.7 % (3-14); Neutrophils Absolute Auto 3600 /uL (1500-7000); Neutrophils Percent Auto 60.1 % (50-75); Platelet Count 161 X10^3/uL (150-400); Red Blood Cell Count 4.59 X10^6/uL (4.0-5.2); Red Cell Distribution Width 14.1 % (11.6-14.8); White Blood Cell Count 5.9 X10^3/uL (4.5-11.0)
[2020-10-09 13:31] LABS: Alanine Aminotransferase 9 IU/L (<35); Albumin 3.9 g/dL (3.5-5.0); Albumin Globulin Ratio 1.3 (1.0-2.8); Alkaline Phosphatase 87 U/L (38-126); Aspartate Aminotransferase 22 IU/L (14-36); BUN Creatinine Ratio 16.4 (6-22); Bilirubin Total 0.3 mg/dL (0.2-1.3); Blood Urea Nitrogen 12 mg/dL (7-17); Calcium 9.3 mg/dL (8.4-10.2); Carbon Dioxide 31 mmol/L (22-32); Chloride 103 mmol/L (98-107); Estimated Glomerular Filt Rate > 60.0 mL/min (>60); Globulin 2.9 g/dL (1.7-4.1); Glucose 91 mg/dL (80-110); HEMOLYSIS 19 (0-50); Potassium 4.9 mmol/L (3.4-5.1); Sodium 135 mmol/L (137-145); Total Protein 6.8 g/dL (6.3-8.2)
[2020-10-09 13:45] LABS: Erythrocyte Sedimentation Rate 37 MM/HR (0-20)
== END ==
PROVIDERS: PCP Family Medicine; Referring Provider Orthopaedic Surgery; Visit Provider Orthopaedic Surgery
DX: Z01.818 Encounter for other preprocedural examination (principal); M19.072 Primary osteoarthritis, left ankle and foot
CPT/HCPCS: 36415; 80053; 85025; 85651

== ENCOUNTER → 2020-10-11 13:07 | Outpatient (CLI) | payer OTHER, SELFPAY ==
[2019-08-10 18:47] VITALS: BMI 37.5
[2020-10-11 15:09] LABS: COVID19 -Nasal RAPID Negative (Negative)
== END ==
PROVIDERS: PCP Family Medicine; Visit Provider Physician Assistant
DX: Z20.822 Contact with and (suspected) exposure to COVID-19 (principal)
CPT/HCPCS: 87635

== ENCOUNTER 2020-10-13 09:53 | Day surgery (SDC) | payer OTHER, SELFPAY ==
[2019-08-10 18:47] VITALS: BMI 37.5
[2020-10-13] VITALS (18 sets, daily range): BP systolic 95–181; BP diastolic 57–100; PULSE 57–92; RESP 10–20; TEMP 36.1–36.8; O2SAT 84–99; BMI 40.1
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
[2020-10-13] MEDS: LACTATED RINGERS 1,000 ML 42 ML IV ×2 (10:54→15:19)
--- NOTE | 2020-10-13 11:26 | PM.PREOP ---
Pre-operative Note COVID-19 COVID-19 status: Negative Interval Note History & Physical reviewed/Exam performed by Physician: Yes Changes to H&P: No
--- NOTE | 2020-10-13 11:31 | P.OP_ITS ---
Operative Date/Time/Diagnoses Date of procedure: 10/13/20 Time of procedure: 12:30 Pre-op diagnosis: Posttraumatic Ankle arthritis left Closed displaced pilon fracture left tibia with malunion Arthritis left subtalar joint Equinus contracture Post-op diagnosis: same Procedure & Clinicians Procedure: Arthrodesis left ankle, open CPT code 65211 Subtalar arthrodesis left CPT code 19128 Osteotomy fibula distal CPT code 57809 Lengthening Achilles tendon, left CPT code 35684-08 Same procedure as scheduled: Yes Indications: Patient is 69-year-old female had a severe open ankle fracture dislocation was treated at [facility] with external fixation and she had a deep infections as well and was definitively treated her in external fixator. She has a contracted transverse scar the anterior ankle joint and hindfoot valgus and [id number] a tibiotalar and subtalar arthritis. She has failed conservative treatments including a custom AFO. She has been indicated for a tibiotalar calcaneal fusion. We discussed a lateral approach to this to avoid her anterior transverse contracted scar. The risks and benefits of the procedure have been discussed with the patient even opportunity to ask questions. The risks of surgery include but are not limited to infection, malunion, nonunion, persistence of pain, damage to nerves and blood vessels, posttraumatic arthritis, DVT, PE, cardiopulmonary complications and . The patient expressed a thorough understanding of the risks and benefits of surgery and has elected to proceed. Consent was signed in the office today. Patient understands the importance of elevation above the heart level for at least 2 weeks after surgery to help with swelling and soft tissue healing. She will be nonweightbearing for approximately 12 weeks. She does take tramadol with a pain specialist. We will manage her pain medication during the acute postoperative. Then she will resume management with her pain specialist. No history of blood clots. She will use aspirin postoperatively for DVT prophylaxis. Surgeon: Tali Chavez Decorating Equipment Setter: Lyle Victoria Anesthesia Type: General and Peripheral nerve block Operative Notes Findings: End-stage arthritis tibiotalar joint and subtalar joints with eburnated bone large anterior bone spurs tibiotalar joint. Contracted anterior transverse scar Closure Type: primary Specimen(s): none sent Prosthetic devices, grafts, tissues, transplants, or devices: Arthrex lateral TTC plate and screws Arthrex 7.0 headless screw Estimated Blood Loss (mL): 80 Blood products transfused: none Tourniquet time (min): 99 Procedure in detail: The patient was seen in the preoperative area the site of surgery marked informed consent confirmed. The patient underwent a peripheral nerve block with the anesthesia team for postoperative pain control. She was brought back to the operating room positioned in the supine position operative table. All bony prominence were well padded. Well-padded thigh tourniquet was placed. An ipsilateral thigh bump was placed in the ipsilateral leg an SCD was placed on the calf. The left lower extremities prepped and draped in standard sterile fashion and a formal time-out procedure was performed confirming the patient's side and site of surgery administration of appropriate preoperative antibiotics. All were in agreement. Implants were in the room. The left lower extremity is evaluated and there was a contracted anterior scar. There are no open wounds. Surgical incisions were marked out on the skin. Esmarch was used for exsanguination the tourniquet was elevated to 250 mm mercury. Stayed up for 99 minutes then became a venous tourniquet was released and not reinflated. There is an equinus contracture. Therefore open Achilles tendon was completed with 3 small posterior incisions with the proximal and distal incisions katherine sectioning the Achilles tendon to the lateral side and the central an incision into the medial side allowing a good stretch and correction of deformity. Lateral incision was made over the distal fibular shaft curving anteriorly toward the cuboid distally. This was taken down through the skin subcutaneous tissues to the level of fibula. The periosteum was elevated exposing the fibular shaft proximally a cm above the joint and then distal to the level of the subtalar joint. The peroneal tendons were tenotomized for exposure. The peroneal tendons were retracted. The subtalar joint was exposed. A saw was used to make an osteotomy of the fibular shaft and the distal fibula was mobilized and excised. This was then divided and morselized for bone graft. There is severely arthritic tibiotalar and subtalar joints with posterior subluxation of the tibiotalar joint. The flange of the distal tibia laterally was removed provide access to the tibiotalar joint. As well as the anterior spur. Next both the tibiotalar joint and the subtalar joint were debrided of all remaining cartilage down to bleeding cancellous bone. This was done with a combination of the curette bur and osteotomes. The wounds were then irrigated. The 2.5 and 3.5 drills were used to drill holes in the bone surfaces for further bleeding cancellous bone. The autograft and mixture with 15 cc of cancellous allograft chips were mixed together and placed in the subtalar and tibiotalar joints. The joints were reduced and aligned with wires obtaining excellent correction of deformity and alignment. This was pinned in place temporarily using K-wires. Once as satisfactory intraoperative multiplanar fluoroscopy was completed and appropriate a left-sided lateral tibiotalar calcaneal plate was fit to the bone positioned making sure adequate bony purchase could be obtained. This was secured with BB tacks. Once this was in adequate position a nonlocking screw was placed in 1 of the talar holes followed by a locking screw. Then attention was turned distally and a nonlocking screw was placed in the oblong hole of the calcaneus compressing the subtalar joint. An additional 7 0 headless screw was placed outside of the plate to compress the subtalar joint increase the likelihood of union. Following this all locking screws were placed in the calcaneus. Next attention was turned to the ankle joint. A nonlocking screw was placed in the oblong hole of the tibial part of the plate compressing the ankle joint. Then attention was turned to the built-in compression hole across the ankle and this was drilled 1st with the under drilled and then over drilled with the 5.5 drill and then a 5.5 lag screw was placed. The remaining plate holes were filled with locking screws. Final x-rays were taken confirming appropriate alignment and correction rotation of left lower extremity. Tourniquet was released hemostasis was achieved. A medium Hemovac drain was placed. Closure was completed with 2-0 Vicryl in deep tissues and subcutaneous L followed by 4-0 Monocryl and 3-0 nylon suture. Sterile dressings were placed with Xeroform Webril and a bulky Villegas cotton in a well-padded posterior splint. Patient was woken from anesthesia taken to PACU in good condition. There no immediate complications from this. Post-operative Plan for aftercare: She will be nonweightbearing in the left lower extremity she may put her foot flat down for balance but no more than 20-30 lb of weight. Elevation above the heart level for the 1st 2 weeks after surgery. Keep dressing clean dry and intact. She will start aspirin for DVT prophylaxis on postop day 1. She will oxycodone for postoperative pain control and hold her home tramadol but as she is able to wean back to this she can wean down on her pain medications. Plan for removal of the drain tomorrow morning and discharge after drain removal in the morning.
[2020-10-13] MEDS: CEFAZOLIN 2 GM/100 ML FROZ.PIGGY IV ×2 (12:00→20:56)
--- NOTE | 2020-10-13 12:47 | SUR.OPER ---
Supine on padded OR bed, head on pillow, arms secured on padded arm boards at <90 degrees abduction, legs uncrossed, safety belt at lower abdomen, tape over blanket over right lower leg, blanket bump under left hip and left lower leg. left lower leg in control of the surgeon. left arm supported on 2 pillows on padded arm board.
[2020-10-13] MEDS: BUPIVACAINE 0.25% W/ EPI (PF) 10 ML VIAL 20 ML INJ (12:55)
[2020-10-13] MEDS: THROMBIN (RECOMBINANT) 5,000 UNIT VIAL 5000 UNIT TOP (14:18)
[2020-10-13] MEDS: HYDROGEN PEROXIDE 473 ML SOLUTION 60 ML TOP (15:23)
[2020-10-13] MEDS: ALBUTEROL 2.5 MG/3 ML NEB (ADULT) INH (15:54)
--- NOTE | 2020-10-13 16:01 | SUR.PHASEI ---
anesthesia called back to bedside as while albuterol neb was running her tongue appeared to be very swollen and protruding from her mouth. no new orders received however iv benadryl was pulled as is at bedside.
--- NOTE | 2020-10-13 16:13 | SUR.PHASEI ---
pt. is awake and making eye contact but wont answer questions. it was determined that a dose of her sinemet may help with her symptoms as she is moving extremities and looking around and pulling at her iv and bp cuff, but does not seem to be aware of what she is doing. ongoing monitoring.
[2020-10-13] MEDS: CARBIDOPA-LEVODOPA ER 50/200 TABLET 1 EACH PO (16:15)
--- NOTE | 2020-10-13 16:26 | SUR.PHASEI ---
pt. appears to be much improved as this time, she took the sinemet easily with water, asked for her glasses, which she found without help in her purse when it was given to her, found her hairbrush and is now brushing her hair, she denies any pain or discomfort, ongoing monitoring.
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
[2020-10-13] MEDS: LACTATED RINGERS 1,000 ML 100 ML IV (17:35)
[2020-10-13] MEDS: ACETAMINOPHEN 325 MG TABLET 975 MG PO (20:56)
[2020-10-13] MEDS: OXYBUTYNIN 5 MG TABLET PO (20:56)
[2020-10-13] MEDS: PREGABALIN 50 MG CAPSULE PO (20:56)
[2020-10-13] MEDS: DOCUSATE 100 MG CAPSULE PO (20:56)
[2020-10-13] MEDS: CARBIDOPA-LEVODOPA ER 50/200 TABLET 2 EACH PO (20:59)
[2020-10-14] MEDS: KETOROLAC 30 MG/ML VIAL 15 MG IV ×2 (01:27→08:47)
[2020-10-14] MEDS: CEFAZOLIN 2 GM/100 ML FROZ.PIGGY IV (04:01)
[2020-10-14 04:41] VITALS: BP 105/70; PULSE 68; RESP 16; TEMP 36.1; O2SAT 94
[2020-10-14 08:00] VITALS: BP 125/56; PULSE 75; RESP 20; TEMP 36.9; O2SAT 94
--- NOTE | 2020-10-14 08:11 | PC.NURSE ---
Unable to administer pantoprazole at 0600 due to other admitting patient arrival and procedure. Will pass on to next shift.
[2020-10-14 08:30] VITALS: PULSE 69; RESP 16; O2SAT 99
[2020-10-14] MEDS: OXYBUTYNIN 5 MG TABLET PO (08:48)
[2020-10-14] MEDS: ACETAMINOPHEN 325 MG TABLET 975 MG PO (08:48)
[2020-10-14] MEDS: DOCUSATE 100 MG CAPSULE PO (08:48)
[2020-10-14] MEDS: ASPIRIN EC 325 MG TABLET PO (08:48)
[2020-10-14] MEDS: PREGABALIN 50 MG CAPSULE PO (08:48)
[2020-10-14] MEDS: atenoloL 25 MG TABLET PO (08:48)
[2020-10-14] MEDS: PANTOPRAZOLE 20 MG TABLET PO (08:48)
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
[2020-10-14] MEDS: DULOXETINE 30 MG CAPSULE PO (09:04)
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
--- NOTE | 2020-10-14 12:45 | CM.DANOTE ---
DCP: Case received, EMR reviewed and met with patient. Introduced self and role. Was able to obtain information from patient regarding her baseline activity status prior to surgery. DCP assessment completed with information currently available. Patient is a 69 year old female who admitted yesterday morning to the care of the orthopedic team. PCP: Dr. Madera. Payer: confirmed: [facility]. Patient came to the hospital for a surgical procedure. she had surgery to her left foot/ankle. She has history of osteoarthritis. Met with patient in her room. She was sitting up in bed, pleasant. She is alert and oriented. She resides in [place] with her spouse, Donaldo. At baseline, she has walker for use. She had originally attempted a knee scooter, but according to notes, did not work for her. She has not driven for 3 years. Patient indicated that [employer] was ordered. She mentioned P.T, O.T. It is uncertain if nursing was ordered. She confirmed that this was ordered by Dr. Chavez's office. Attempted to call Dharmesh's phone at [facility], but voice mail full. Called main number, and was on hold. P: Patient has discharge orders for home. Will go ahead and fax DC Summary to [facility]. Regina Cordero RN/Assembly Supervisor
--- NOTE | 2020-10-14 13:47 | PT.IPTN ---
Current Diagnoses Rheumatoid arthritis, unspecified (10/13/20) Primary osteoarthritis, left ankle and foot (10/13/20) Primary osteoarthritis, unspecified ankle and foot (10/13/20) Surgery Performed Operation Date: 10/13/20 11:15 Actual Procedures p open ankle fusion & subtalar joint fusion w. plate & screws, fibular osteotomy & bone graft, autograft and allograft(Left) - Tali Chavez MD s Achilles Tendon Lengthening - Tali Chavez MD Physical Therapy Treatment Note M2 PT-IP Current Condition Start: 10/14/20 12:33 Freq: NEEDED Status: Active Protocol: Document 10/14/20 09:30 AB (Rec: 10/14/20 12:51 AB [id number]) Physical Therapy Current Condition Current Condition Evaluation Date 10/14/20 Treatment Diagnosis s/p L ankle arthrodesis; difficulty in walking Onset Date 10/13/20 Precautions Brace L ankle on soft cast Weight Bearing Status Weight Bearing Status Non-Weight Bearing Allowed Weight Bearing Amount (enter % LLE NWB or #) (%) M3 PT-IP Subjective Start: 10/14/20 12:33 Freq: NEEDED Status: Active Protocol: Document 10/14/20 13:04 LJ (Rec: 10/14/20 13:47 LJ [id number]) Subjective Physical Therapy Visit Type Type Treatment Note Visit Start Time 13:04 Visit Stop Time 13:28 Total Visit Minutes 22 Number of ELECTRIC [employer] READER Visits 1 Physical Therapy Visit Comments Patient Comments pt is agreeable to do PT. in room for CG training. Therapy Pain Assessment Pain Present Pain Present Pain Reported Location Left Knee Pain Behaviors Calling Out,Facial Grimacing Pain Management Techniques Distraction,Elevation,Re- positioning M4 PT-IP Mobility and Gait Start: 10/14/20 12:33 Freq: NEEDED Status: Active Protocol: Document 10/14/20 13:04 LJ (Rec: 10/14/20 13:47 LJ [id number]) PT-Bed Mobility Assessment Supine to Sit Supine to Sit Standby Assistance Sit to Supine Sit to Supine Standby Assistance PT-Transfer Assessment Sit to and From Stand Sit to and from Stand Standby Assistance Equipment Transfer Assistive Device Gait Belt,Front Wheeled Walker Orthotic/Prosthetic Devices or Brace: No Transfers Transfer Destination Chair,Wheelchair Transfer Technique Stand Step Pivot Transfer Ability Level of Assist Standby Assistance,1 Person Assistance,Use of Upper Extremities Comments Mobility Comments Pt in bed upon arrival. Supine >sit SBA, sit>stand from bed Shahana with LLE to clear guard rail of bed. Pt needed cues for rocking side to side to scoot to side of bed. stabilized FWW while pt pushed from bed and pulled on FWW. Performed pivot on RLE somewhat impulsively reached for the chair to sit down before she was centered. E[employer] READER stopped her and she repositioned herself appropriately. Complained that she couldn't stand any longer to get in the right position buyt she did anyway. Second transfer was from the chair to the which the stabilized while the pt performed the sit>stand and pivot with SBA from therapist. Pt clumsy and impulsive again but listened to cues for body positioning. Third transfer was back to the chair after several minutes rest. Pt needed two tries for sit>stand . assisting pt with standing from WC cueing pt to scoot all the way back to the chair before sitting down. Pt somewhat compliant but sat prior to being fully positioned up to the seat of the chair. Pt was left in the chair with in room. All needs within reach. Gait Assessment Comments Gait Comments unable M5 PT-IP Objective Assessments Start: 10/14/20 12:33 Freq: NEEDED Status: Active Protocol: Document 10/14/20 09:30 AB (Rec: 10/14/20 12:51 AB [id number]) Orientation Orientation/Cognition Level of Alertness Alert Orientation Name,Place,Situation Language Function Ability No Deficits Noted Safety Awareness Decreased Safety Awareness Memory Description No Deficits Noted Gross Range of Motion Lower Extremity ROM Assessment Left Impaired Impairments LLE on a soft cast Strength Lower Extremity Strength Hip 4+/5 Knee 4+/5 Sensation Assessment Sensation Gross Sensation WNL Muscle Tone Muscle Tone WNL Yes M6 PT-IP Treatment Start: 10/14/20 12:33 Freq: NEEDED Status: Active Protocol: Document 10/14/20 13:04 SIMI (Rec: 10/14/20 13:47 SIMI [id number]) Physical Therapy Treatment Education Education Provided Safety M7 PT-IP Assessment and Plan Start: 10/14/20 12:33 Freq: NEEDED Status: Active Protocol: Document 10/14/20 13:04 SIMI (Rec: 10/14/20 13:47 LJ [id number]) PT Summary Assessment and Plan Potential Rehabilitation Potential Good Status of Condition at Evaluation Stable Summary Impairments Pain,ROM,Strength,Balance, Coordination,Sensation,Tone, Cognition,Bed Mobility, Transfers,Gait,Activity Tolerance Assessment Summary Pt requiring cueing and SBA- CGA for transfers. is attentive but they sometimes disagree as to how to perform some movements and strategies for transfers. Goals Days to Meet Goals 3 Frequency of Treatment Frequency Of Treatment Twice a Day Treatment Plan Physical Therapy Treatment Plan Bed Mobility Training,Transfer Training,Gait Training, Therapeutic Exercise,Balance Retraining,Post Op Education, Discharge Planning,Hot or Cold Pack,Neuromuscular Re-ed, Coordination Retraining Recommendations To Nursing Amount of Assist Needed 1 Person Assist Discharge Recommendations PT Discharge Recommendations Home with Assistance,Home Health
[2020-10-14] MEDS: OXYCODONE IR 5 MG TABLET PO (14:15)
--- NOTE | 2020-10-14 15:31 | PC.NURSE ---
Patient educated about new medications, ss of infection, follow up appt's, pain medication, diet, activity, falls, ss of stroke. Patient verbalized understanding to all teaching instructions. Patient left facility with all prescriptions in hand. Patient left facility with all discharge paperwork and all belongings. Patient left facility with via wheelchair to private vehicle.
== END 2020-10-14 14:00 | disposition home or self-care (01) ==
LOC: OR 13:41 → AC 13:41
PROVIDERS: PCP Family Medicine; Referring Provider Orthopaedic Surgery Foot and Ankle Surgery; Visit Provider Orthopaedic Surgery Foot and Ankle Surgery
PROC: (CPT 27870; principal; 2020-10-13 11:15)
PROC: (CPT 27707; 2020-10-13 11:15)
DX: M19.072 Primary osteoarthritis, left ankle and foot (principal); S82.872P Displaced pilon fracture of left tibia, subsequent encounter for closed fracture with malunion; M25.872 Other specified joint disorders, left ankle and foot; M21.072 Valgus deformity, not elsewhere classified, left ankle; M24.575 Contracture, left foot; E66.9 Obesity, unspecified; Z68.41 Body mass index [BMI] 40.0-44.9, adult; I10 Essential (primary) hypertension; G43.909 Migraine, unspecified, not intractable, without status migrainosus; G62.9 Polyneuropathy, unspecified
CPT/HCPCS: 27707; 27870; 28725; 27685; 73610; 76000; 94762; 97161; 97530; J0690; J1100; J1885; J2250; J2405; J2704; J3010; J7613

== ENCOUNTER → 2021-04-04 13:41 | Outpatient (CLI) | payer OTHER, SELFPAY ==
[2020-10-13 18:13] VITALS: BMI 40.1
--- NOTE | 2021-04-04 13:42 | DI.CT.S_ITS ---
PROCEDURE: CT LE LT W CON INDICATIONS: Post-traumatic osteoarthritis, left ankle and foot TECHNIQUE: Noncontrast 1-1.5 mm axial sections acquired from above the tibiotalar joint to the bottom of the calcaneus, with coronal and sagittal reformats. COMPARISON: [facility] [place], CR, XR ANKLE 3+ VIEWS LEFT, 01/03/2021, 16:07. [facility] [place], CR, XR ANKLE 3+ VIEWS LEFT, 12/08/2020, 11:35. [facility], CR, XR ANKLE LT MIN 3V, 10/13/2020, 13:53. [facility] [place], CR, XR ANKLE 3 VIEWS WEIGHT BEARING LEFT, 04/11/2020, 15:31. [facility] [place], CR, XR ANKLE 3 VIEWS WEIGHT BEARING LEFT, 11/09/2019, 14:52. [facility] [place], CR, XR ANKLE 3 VIEWS WEIGHT BEARING LEFT, 03/21/2021, 15:42. FINDINGS: Image quality: Excellent. Bones: Severe diffuse osteopenia is present. Plate and screw fixation of the hindfoot, which transfixes the tibia, talus and calcaneus. There is also screw arthrodesis of the subtalar joint. Hardware appears grossly intact. There is lucency at the bone metal interface of the screws within the calcaneus which is to some degree present on the prior radiographic studies although conspicuous and greater than 2 mm in thickness. This raises the possibility of hardware loosening or infection. There is minimal bridging ossification. No definite acute fracture although decreased bone mineralization decreases study sensitivity. Status post resection of the distal fibula. Severe 1st MTP , lesser MTP and interphalangeal osteoarthritis. There is severe diffuse muscle atrophy. Chronic osseous fusion of the 2nd tarsometatarsal joint. Plantar calcaneal spurring is present. IMPRESSION: Status post arthrodesis of the tibiotalar and subtalar joints. Hardware appears intact. Unchanged alignment. There is no definite bridging ossification . Prominent lucency seen at the bone metal interface in particular in the calcaneus raises the possibility of loosening or infection. Please correlate clinically and if needed triple phase bone scan could be performed. Dictated by: Sherif Rebolledo M.D. on 04/04/2021 at 14:53 Approved by: Sherif Rebolledo M.D. on 04/04/2021 at 15:25
== END ==
PROVIDERS: PCP Family Medicine; Referring Provider Orthopaedic Surgery Foot and Ankle Surgery; Visit Provider Orthopaedic Surgery Foot and Ankle Surgery
DX: M19.172 Post-traumatic osteoarthritis, left ankle and foot (principal); M85.872 Other specified disorders of bone density and structure, left ankle and foot; M77.32 Calcaneal spur, left foot; Z98.1 Arthrodesis status
CPT/HCPCS: 73700

== ENCOUNTER → 2021-07-25 15:37 | Outpatient (CLI) | payer OTHER, SELFPAY ==
[2020-10-13 18:13] VITALS: BMI 40.1
--- NOTE | 2021-07-25 15:56 | DI.MG.S_ITS ---
Patient Name: KING ARTIS date: 1950 Sex: F Attending Physician: DELFINO Indications: Date: 07/25/2021 15:40 At the request of: JOSSE SALEH Procedure: MM screening mammo BI BILATERAL DIGITAL SCREENING MAMMOGRAM 3D/2D WITH CAD: 07/25/2021 CLINICAL: Routine screening. Comparison is made to exams dated: 11/18/2013 mammogram and 11/27/2010 mammogram - out side. The tissue of both breasts is predominantly fatty. Current study was also evaluated with a Computer Aided Detection (CAD) system. No significant masses, calcifications, or other findings are seen in either breast. There has been no significant interval change. IMPRESSION: NEGATIVE There is no mammographic evidence of malignancy. A 1 year screening mammogram is recommended. This exam was interpreted at Station ID: [id number]. NOTE: For mammograms, a report in lay terms will be sent to the patient. Approximately 15% of breast malignancies will not be visualized mammographically. In the management of a palpable breast mass, a negative mammogram must not discourage biopsy of a clinically suspicious lesion. Electronically Signed By: Joaquin zavala/chela:07/25/2021 16:35:12 letter sent: Normal Exam ACR BI-RADS Category 1: Negative [id number]
== END ==
PROVIDERS: PCP Family Medicine; Referring Provider Family Medicine; Visit Provider Family Medicine
DX: Z12.31 Encounter for screening mammogram for malignant neoplasm of breast (principal)
CPT/HCPCS: 77063; 77067

== ENCOUNTER → 2021-12-04 11:39 | Outpatient (CLI) | payer OTHER, SELFPAY ==
[2020-10-13 18:13] VITALS: BMI 40.1
--- NOTE | 2021-12-04 11:42 | DI.CT.S_ITS ---
PROCEDURE: CT LE LT W CON INDICATIONS: EVALUATE FOR NONUNION LEFT TECHNIQUE: Noncontrast 1-1.5 mm axial sections acquired from above the tibiotalar joint to the bottom of the calcaneus, with coronal and sagittal reformats. COMPARISON: [facility], CT, CT LE LT WO CON, 04/04/2021, 14:03. FINDINGS: Image quality: Excellent. Bones: No acute, displaced fracture or dislocation. Diffuse osteopenia. Fusion of the 2nd metatarsophalangeal joint. Redemonstrated defect in the posterior calcaneus, compatible with hardware removal. Slightly increased widening of the tibiotalar and talocalcaneal articulations despite surgical hardware. Perihardware lucency in the anterior calcaneus, compatible with loosening. Persistent separation of the lateral tibial fixation plate. Resection of the distal fibula. Trace calcaneal enthesophytes. Soft tissues: Lateral soft tissue edema. IMPRESSION: 1. Slightly increased widening of the tibiotalar and talocalcaneal articulations. 2. Persistent separation of the lateral tibial fixation plate. 3. Perihardware lucency in the anterior calcaneus, compatible with loosening. Dictated by: Tal Young M.D. on 12/04/2021 at 15:27 Approved by: Tal Young M.D. on 12/04/2021 at 15:37
== END ==
PROVIDERS: PCP Family Medicine; Referring Provider Orthopaedic Surgery Foot and Ankle Surgery; Visit Provider Orthopaedic Surgery Foot and Ankle Surgery
DX: S82.892S Other fracture of left lower leg, sequela (principal); M50.322 Other cervical disc degeneration at C5-C6 level; M47.812 Spondylosis without myelopathy or radiculopathy, cervical region; X58.XXXS Exposure to other specified factors, sequela
CPT/HCPCS: 72040; 73700

== ENCOUNTER → 2021-12-04 13:38 | Outpatient (CLI) | payer OTHER, SELFPAY ==
[2020-10-13 18:13] VITALS: BMI 40.1
--- NOTE | 2021-12-04 | DI.RAD.S_ITS ---
PROCEDURE: XR CERVICAL SPINE 2V OR 3V INDICATIONS: Cervicalgia TECHNIQUE: 3 view(s) of the cervical spine were acquired. COMPARISON: None. FINDINGS: Bones: No fractures or dislocations to the C7 level. The lateral masses of C1 appear intact on the odontoid view. No suspicious bony lesions. Multilevel disc space narrowing and endplate osteophyte formation, worst at C5-C6 and C6-C7, indicating degenerative disc disease. Facet hypertrophy throughout the mid and lower cervical spine. Soft tissues: No prevertebral soft tissue swelling. IMPRESSION: Multilevel degenerative disc and facet disease. No acute fracture. No osseous lesion. If symptoms and/or clinical suspicion for pathology persist, further assessment with repeat, or advanced imaging (e.g., CT, MRI, or bone scan) may be helpful for further assessment. Dictated by: Philomena Story M.D. on 12/04/2021 at 15:21 Approved by: Philomena Story M.D. on 12/04/2021 at 15:22
== END ==
PROVIDERS: PCP Family Medicine; Referring Provider Physician Assistant; Visit Provider Physician Assistant
DX: M50.322 Other cervical disc degeneration at C5-C6 level (principal); M47.812 Spondylosis without myelopathy or radiculopathy, cervical region
CPT/HCPCS: 72040